=== PATIENT | female | born 1980 | race Caucasian/White ===

== ENCOUNTER → 2018-12-03 | Outpatient (CLI) | payer BC ==
[~2018-12-03] MED LIST: ALBU6.7H PO
[2018-12-03 11:34] LABS: CULTURE INDICATED? NO; MICROSCOPIC NOT IND
[2018-12-03 11:43] LABS: BASOPHILS # (AUTO) 0.04 x10^3/uL (0-0.1); BASOPHILS % (AUTO) 1 % (0-1); EOSINOPHILS # (AUTO) 0.02 x10^3/uL (0-0.4); EOSINOPHILS % (AUTO) 0 % (1-7); LYMPHOCYTES # (AUTO) 2.25 x10^3/uL (1-3.4); LYMPHOCYTES % (AUTO) 28 % (22-44); MD NO; MEAN CORPUSCULAR HEMOGLOBIN 27.4 pg (27.0-34.8); MEAN CORPUSCULAR HGB CONC 33.3 g/dL (32.4-35.8); MEAN CORPUSCULAR VOLUME 82.3 fL (80-100); MEAN PLATELET VOLUME 7.5 fL (7.4-10.4); MONOCYTES # (AUTO) 0.42 x10^3/uL (0.2-0.8); MONOCYTES % (AUTO) 5 % (2-9); NEUTROPHILS # (AUTO) 5.41 x10^3/uL (1.8-6.8); NEUTROPHILS % (AUTO) 66 % (42-75); PLATELET COUNT 283 x10^3/uL (130-400); RED BLOOD COUNT 4.71 x10^6/uL (3.82-5.3); RED CELL DISTRIBUTION WIDTH 14.8 % (9.6-15.2)
[2018-12-03 11:49] LABS: INTERNATIONAL NORMALIZED RATIO 0.95 (0.93-1.1)
[2018-12-03 11:52] LABS: ANION GAP 6 mmol/L (5-15); CALCIUM 8.9 mg/dL (8.5-10.1); CHLORIDE 114 mmol/L (98-107)
[2018-12-03 11:53] LABS: CREATININE 0.65 mg/dL (0.55-1.02)
== END | disposition home or self-care (01) ==
LOC: STAR 10:28
PROVIDERS: ATTEND Neurological Surgery
DX: Z01.818 Encounter for other preprocedural examination (principal); M54.16 Radiculopathy, lumbar region
CPT/HCPCS: 36415; 71046; 80048; 81003; 85025; 85610; 85730; 93005

== ENCOUNTER 2018-12-17 11:51 | Observation (INO) | payer BC ==
[~2018-12-17] VITALS: Ht 154.9 cm; Wt 74.6 kg
[~2018-12-17 11:51] MED LIST changes: +BACITRACIN 50,000 UNIT ONE; +BUPIVACAINE/PF 0.25% ONE; +EPINEPHRINE 1 MG/ML, 1ML ONE; +THROMBIN 5,000 UNIT VIAL TP ONE; +VANCOMYCIN 1,000 MG ONE
[2018-12-17] MEDS ORDERED: LACTATED RINGERS 1,000 ML IV SCH (12:14)
[2018-12-17 12:17] VITALS: BP 128/85
[2018-12-17 12:39] LABS: HCG UR SG 1.015 (1.003-1.030)
[2018-12-17] MEDS ORDERED: FENTANYL PF 250 MCG/5ML ONE (13:22)
[2018-12-17] MEDS ORDERED: MIDAZOLAM 1 MG/ML, 2ML ONE (13:22)
[2018-12-17] MEDS ORDERED: GLYCOPYRROLATE 0.2MG/1ML, 5ML ONE (13:26)
[2018-12-17] MEDS ORDERED: SUCCINYLCHOLINE 20 MG/ML, 10ML ONE (13:26)
[2018-12-17] MEDS ORDERED: CEFAZOLIN 1,000 MG ONE (13:26)
[2018-12-17] MEDS ORDERED: PROPOFOL 10 MG/ML, 20ML ONE (13:26)
[2018-12-17] MEDS ORDERED: ROCURONIUM 10MG/ML,5ML ONE (13:26)
[2018-12-17] MEDS ORDERED: NEOSTIGMINE 1 MG/ML, 10ML ONE (13:26)
[2018-12-17] MEDS ORDERED: ONDANSETRON 2MG/ML, 2ML ONE (13:26)
[2018-12-17] MEDS ORDERED: DEXAMETHASONE 4 MG/ML, 1ML ONE (13:26)
[2018-12-17] MEDS ORDERED: ONDANSETRON 2MG/ML, 2ML IV PRN (14:30)
[2018-12-17] MEDS ORDERED: ONDANSETRON ODT 8 MG PO PRN (14:30)
[2018-12-17] MEDS ORDERED: OXYcodone 5 MG/5 ML ORAL.SOL UDC PO PRN (14:30)
[2018-12-17] MEDS ORDERED: DIAZEPAM 5 MG/ML, 2ML IVPush PRN (14:30)
[2018-12-17] MEDS ORDERED: MEPERIDINE/PF 25MG/0.5ML IVPush PRN (14:30)
[2018-12-17] MEDS ORDERED: ACETAMINOPHEN 325 MG TABLET PO PRN (14:30)
[2018-12-17] MEDS ORDERED: LORazepam 2 MG/ML, 1ML IVPush PRN (14:30)
[2018-12-17] MEDS ORDERED: PROMETHAZINE 25 MG/ML, 1ML IV PRN (14:30)
[2018-12-17] MEDS ORDERED: methylPREDNISolone SOD SUCC 125 MG/2 ML ONE (16:19)
[2018-12-17] MEDS ORDERED: FENTANYL PF 100 MCG/2ML ONE ×2 (16:19→17:03)
[2018-12-17] MEDS ORDERED: MAGNESIUM HYDROXIDE 8%, 30ML UDC PO PRN (17:00)
[2018-12-17] MEDS ORDERED: PROMETHAZINE 25 MG/ML, 1ML IM PRN (17:00)
[2018-12-17] MEDS ORDERED: ONDANSETRON 2MG/ML, 2ML IVPush PRN (17:00)
[2018-12-17] MEDS ORDERED: PHARMACY MAY ADJ FOR RENAL FX MC PRN (17:00)
[2018-12-17] MEDS ORDERED: BISACODYL 10 MG SUPP PR PRN (17:00)
[2018-12-17] MEDS ORDERED: DIPHENHYDRAMINE 50 MG CAPSULE PO PRN (17:00)
[2018-12-17] MEDS ORDERED: ACETAMINOPHEN 650 MG/20.3 ML UDC ONE (17:03)
[2018-12-17] MEDS ORDERED: OXYcodone 5 MG/5 ML ORAL.SOL UDC ONE (17:03)
[2018-12-17] MEDS: FENTANYL PF 100 MCG/2ML IV PRN ×2 (17:08→17:14)
[2018-12-17] MEDS ORDERED: HYDROmorphone 2 MG/ML, 1ML ONE (17:29)
[2018-12-17] MEDS: HYDROmorphone 2 MG/ML, 1ML IVPush PRN ×4 (17:32→18:32)
[2018-12-17] MEDS ORDERED: MEPERIDINE/PF 25MG/ML,1ML ONE (17:44)
[2018-12-17] MEDS: METHOCARBAMOL 750 MG TABLET PO PRN (19:48)
[2018-12-17] MEDS: HYDROcodone/APAP 10/325 MG TABLET PO PRN ×2 (19:48→23:40)
[2018-12-17] MEDS: SODIUM CHLORIDE FLUSH 10ML SYR IVF SCH (21:00)
[2018-12-17] MEDS: CEFAZOLIN PMX 1GM/50ML 50 ML IVPB SCH (22:22)
[2018-12-17] MEDS: NS + 20MEQ KCL 1,000 ML IV SCH (22:23)
[2018-12-18 00:28] VITALS: BP 101/69
[2018-12-18] MEDS ORDERED: HYDROmorphone 2 MG/ML, 1ML ONE (01:15)
[2018-12-18] MEDS: HYDROmorphone 1 MG/ML, 1ML IVPush PRN ×2 (01:18→01:36)
[2018-12-18] MEDS: METHOCARBAMOL 750 MG TABLET PO PRN (04:08)
[2018-12-18] MEDS: HYDROcodone/APAP 10/325 MG TABLET PO PRN ×3 (04:08→13:01)
[2018-12-18 04:45] VITALS: BP 107/68
[2018-12-18] MEDS: CEFAZOLIN PMX 1GM/50ML 50 ML IVPB SCH (06:12)
[2018-12-18] MEDS: NS + 20MEQ KCL 1,000 ML IV SCH (06:20)
[2018-12-18 07:39] VITALS: BP 106/67
[2018-12-18] MEDS ORDERED: METH750T2 PO (08:51)
[2018-12-18] MEDS ORDERED: HYDR-3307 PO (08:51)
[2018-12-18] MEDS ORDERED: SENNA/DOCUSATE TABLET PO SCH (09:00)
[2018-12-18] MEDS ORDERED: METHOCARBAMOL 750 MG TABLET PO PRN (09:00)
[2018-12-18] MEDS: SODIUM CHLORIDE FLUSH 10ML SYR IVF SCH (09:10)
[2018-12-18 12:59] VITALS: BP 114/73
== END 2018-12-18 13:52 | disposition home or self-care (01) ==
LOC: OUT 11:51 → ORIP 16:43 → 4NOR 19:02 → DCLOUNGE 12-18 13:17
PROVIDERS: ADMIT Neurological Surgery; ATTEND Neurological Surgery
DX: M51.17 Intervertebral disc disorders with radiculopathy, lumbosacral region (principal); M67.40 Ganglion, unspecified site
CPT/HCPCS: 63047; 63048; 72100; 81025; 96365; 96366; 96372; 96375; 97161; 97165; G0378; J0171; J0330; J0690; J1100; J1170; J2175; J2250; J2405; J2550; J2704; J2710; J2930; J3010; J3480; J3490; J3370

== ENCOUNTER 2019-05-09 18:51 | Emergency (ER) | payer BC ==
[~2019-05-09] VITALS: Ht 152.4 cm; Wt 76.8 kg
[~2019-05-09 18:51] MED LIST changes: -ALBU6.7H PO; +ALBU6.7H8 PO; -BACITRACIN 50,000 UNIT ONE; -BUPIVACAINE/PF 0.25% ONE; -EPINEPHRINE 1 MG/ML, 1ML ONE; +HYDR-36 PO; +METH750T2 PO; -THROMBIN 5,000 UNIT VIAL TP ONE; -VANCOMYCIN 1,000 MG ONE
[2019-05-09 18:55] VITALS: BP 121/86
--- NOTE | 2019-05-09 19:08 | NUR ---
Patient to room with family, reports weakness and tingling worse on left side and worsening contraction of the left calf. Also worsenging numbness of "genitals." Patient reports symptoms are similar to previous symptoms that were associated with previous spinal problems that had been treated with a spinal surgery. Patient placed on monitor; vss. Provider to bedside. Awaiting orders
[2019-05-09 20:13] LABS: HCG UR SG 1.024 (1.003-1.030); MICROSCOPIC NOT IND
[2019-05-09 20:18] LABS: CULTURE INDICATED? NO
[2019-06-06] MEDS ORDERED: GABA600T7 PO (12:59)
[2019-06-06] MEDS ORDERED: IRON18TA PO (12:59)
[2019-06-06] MEDS ORDERED: TOLT4CAP PO (12:59)
[2019-06-06] MEDS ORDERED: CHOL100012 PO (12:59)
== END 2019-05-09 21:38 | disposition home or self-care (01) ==
LOC: ED 19:46
DX: R30.0 Dysuria (principal); R20.2 Paresthesia of skin; G89.29 Other chronic pain; M54.5 Low back pain
CPT/HCPCS: 81003; 81025; 99283

== ENCOUNTER 2019-06-12 17:00 | Inpatient (IN) | payer BC ==
[~2019-06-12] VITALS: Ht 152.4 cm; Wt 77.7 kg
[~2019-06-12 17:00] MED LIST changes: +CHOL100012 PO; +GABA600T7 PO; +IRON18TA PO; +TOLT4CAP PO
[2019-06-14] MEDS ORDERED: BUPIVACAINE/PF 0.25% ONE ×2 (07:07→11:55)
[2019-06-14] MEDS ORDERED: EPINEPHRINE 1 MG/ML, 1ML ONE (07:07)
[2019-06-14] MEDS ORDERED: THROMBIN (RECOMBINANT) 5,000 UNIT VIAL TP ONE (07:07)
[2019-06-14] MEDS ORDERED: BACITRACIN 50,000 UNIT ONE (07:07)
[2019-06-14] MEDS ORDERED: VANCOMYCIN 1,000 MG ONE (07:08)
[2019-06-14 08:30] VITALS: BP 133/89
[2019-06-14] MEDS ORDERED: ONDANSETRON 2MG/ML, 2ML IV PRN (09:00)
[2019-06-14] MEDS ORDERED: OXYcodone 5 MG/5 ML ORAL.SOL UDC PO PRN (09:00)
[2019-06-14] MEDS ORDERED: hydrALAzine 20 MG/ML, 1ML IV PRN (09:00)
[2019-06-14] MEDS ORDERED: PROMETHAZINE 25 MG/ML, 1ML IV PRN (09:00)
[2019-06-14] MEDS ORDERED: FENTANYL PF 100 MCG/2ML IV PRN (09:00)
[2019-06-14] MEDS ORDERED: MEPERIDINE/PF 25MG/ML,1ML IVPush PRN (09:00)
[2019-06-14] MEDS ORDERED: LABETALOL 5MG/ML, 20ML IV PRN (09:00)
[2019-06-14] MEDS ORDERED: GABA300C10 PO (09:05)
[2019-06-14] MEDS ORDERED: FENTANYL PF 250 MCG/5ML ONE (09:32)
[2019-06-14] MEDS ORDERED: MIDAZOLAM 1 MG/ML, 2ML ONE (09:32)
[2019-06-14] MEDS ORDERED: PROPOFOL 100 ML ONE (09:32)
[2019-06-14] MEDS ORDERED: HEPARIN 1,000 UNITS/ML, 30ML ONE (09:53)
[2019-06-14] MEDS ORDERED: ROCURONIUM 10 MG/ML,10ML ONE (10:33)
[2019-06-14] MEDS ORDERED: DEXAMETHASONE 4 MG/ML, 1ML ONE (10:33)
[2019-06-14] MEDS ORDERED: CEFAZOLIN 1,000 MG ONE (10:33)
[2019-06-14] MEDS ORDERED: ONDANSETRON 2MG/ML, 2ML ONE (10:33)
[2019-06-14] MEDS ORDERED: HYDROmorphone 1 MG/ML, 1ML VIAL ONE (13:27)
[2019-06-14] MEDS ORDERED: OXYcodone 5 MG/5 ML ORAL.SOL UDC ONE (13:27)
[2019-06-14] MEDS ORDERED: HYDROmorphone 1 MG/ML, 1ML INJ IVPush PRN (13:30)
[2019-06-14] MEDS ORDERED: PROMETHAZINE 25 MG/ML, 1ML IM PRN (13:30)
[2019-06-14] MEDS ORDERED: ONDANSETRON 2MG/ML, 2ML IVPush PRN (13:30)
[2019-06-14] MEDS ORDERED: MAGNESIUM HYDROXIDE 8%, 30ML UDC PO PRN (13:30)
[2019-06-14] MEDS: HYDROmorphone 2 MG/ML, 1ML IVPush PRN ×5 (13:30→17:42)
[2019-06-14] MEDS ORDERED: PHARMACY MAY ADJ FOR RENAL FX MC PRN (13:30)
[2019-06-14] MEDS ORDERED: DIPHENHYDRAMINE 50 MG/ML, 1ML IVPush PRN (13:30)
[2019-06-14] MEDS ORDERED: DIAZEPAM 5 MG TABLET PO PRN (13:30)
[2019-06-14] MEDS ORDERED: BISACODYL 10 MG SUPP PR PRN (13:30)
[2019-06-14] MEDS ORDERED: MEPERIDINE/PF 100 MG/ML IM PRN (13:30)
[2019-06-14] MEDS ORDERED: HYDROmorphone PCA 30 MG/30 ML IV PRN (13:30)
[2019-06-14] MEDS ORDERED: DIAZEPAM 5 MG/ML, 2ML ONE (13:35)
[2019-06-14] MEDS ORDERED: MEPERIDINE/PF 25MG/ML,1ML ONE (13:47)
[2019-06-14] MEDS ORDERED: DIAZEPAM 5 MG/ML, 2ML IV ONE (14:00)
[2019-06-14] MEDS: GABAPENTIN 300 MG CAPSULE PO SCH ×2 (15:28→20:33)
[2019-06-14] MEDS: NS + 20MEQ KCL 1,000 ML IV SCH (15:44)
[2019-06-14] MEDS: TIZANIDINE 4MG TABLET PO PRN (15:44)
[2019-06-14] MEDS: METHOCARBAMOL 750 MG TABLET PO PRN (17:05)
[2019-06-14 18:46] VITALS: BP 94/62
[2019-06-14] MEDS: CEFAZOLIN PMX 1GM/50ML 50 ML IVPB SCH (19:32)
[2019-06-14] MEDS: SODIUM CHLORIDE FLUSH 10ML SYR IVF SCH (20:34)
[2019-06-15] MEDS: TIZANIDINE 4MG TABLET PO PRN ×3 (00:06→19:30)
[2019-06-15 00:12] VITALS: BP 111/79
[2019-06-15] MEDS: NS + 20MEQ KCL 1,000 ML IV SCH ×3 (02:00→22:00)
[2019-06-15] MEDS: METHOCARBAMOL 750 MG TABLET PO PRN ×2 (02:33→16:18)
[2019-06-15] MEDS: CEFAZOLIN PMX 1GM/50ML 50 ML IVPB SCH (02:34)
[2019-06-15] MEDS: HYDROmorphone 2 MG/ML, 1ML IVPush PRN (03:51)
[2019-06-15 04:18] VITALS: BP 111/79
[2019-06-15 05:28] LABS: BASOPHILS # (AUTO) 0.01 x10^3/uL (0-0.1); BASOPHILS % (AUTO) 0 % (0-1); EOSINOPHILS % (AUTO) 0 % (1-7); LYMPHOCYTES # (AUTO) 0.86 x10^3/uL (1-3.4); LYMPHOCYTES % (AUTO) 6 % (22-44); MD NO; MEAN CORPUSCULAR HEMOGLOBIN 30.3 pg (27.0-34.8); MEAN CORPUSCULAR HGB CONC 33.9 g/dL (32.4-35.8); MEAN CORPUSCULAR VOLUME 89.3 fL (80-100); MEAN PLATELET VOLUME 7.8 fL (7.4-10.4); MONOCYTES # (AUTO) 0.66 x10^3/uL (0.2-0.8); MONOCYTES % (AUTO) 5 % (2-9); NEUTROPHILS # (AUTO) 12.98 x10^3/uL (1.8-6.8); NEUTROPHILS % (AUTO) 90 % (42-75); PLATELET COUNT 240 x10^3/uL (130-400); RED BLOOD COUNT 3.76 x10^6/uL (3.82-5.3); RED CELL DISTRIBUTION WIDTH 17.1 % (9.6-15.2)
[2019-06-15 05:45] LABS: ANION GAP 6 mmol/L (5-15); CALCIUM 8.4 mg/dL (8.5-10.1); CHLORIDE 109 mmol/L (98-107)
[2019-06-15 05:47] LABS: CREATININE 0.78 mg/dL (0.55-1.02)
[2019-06-15 08:03] VITALS: BP 106/69
[2019-06-15] MEDS: GABAPENTIN 300 MG CAPSULE PO SCH ×3 (08:48→21:13)
[2019-06-15] MEDS: TOLTERODINE LA 4MG CAP.ER.24H PO SCH (08:48)
[2019-06-15] MEDS: SENNA/DOCUSATE TABLET PO SCH (08:48)
[2019-06-15] MEDS: SODIUM CHLORIDE FLUSH 10ML SYR IVF SCH ×2 (08:49→21:00)
[2019-06-15] MEDS: OXYcodone/APAP 5/325MG TABLET PO PRN ×3 (08:49→20:29)
[2019-06-15] MEDS ORDERED: HYDROmorphone 1 MG/ML, 1ML INJ IVPush PRN (09:30)
[2019-06-15 13:16] VITALS: BP 99/64
[2019-06-15 20:21] VITALS: BP 95/69
[2019-06-16] MEDS: METHOCARBAMOL 750 MG TABLET PO PRN ×3 (00:15→16:03)
[2019-06-16] MEDS: OXYcodone/APAP 5/325MG TABLET PO PRN ×4 (00:16→17:35)
[2019-06-16 00:28] VITALS: BP 91/60
[2019-06-16] MEDS: TIZANIDINE 4MG TABLET PO PRN ×2 (04:30→11:51)
[2019-06-16 05:42] LABS: CHLORIDE 109 mmol/L (98-107)
[2019-06-16 05:49] LABS: BASOPHILS # (AUTO) 0.03 x10^3/uL (0-0.1); BASOPHILS % (AUTO) 0 % (0-1); EOSINOPHILS # (AUTO) 0.03 x10^3/uL (0-0.4); EOSINOPHILS % (AUTO) 0 % (1-7); LYMPHOCYTES # (AUTO) 2.44 x10^3/uL (1-3.4); LYMPHOCYTES % (AUTO) 22 % (22-44); MD NO; MEAN CORPUSCULAR HEMOGLOBIN 30.7 pg (27.0-34.8); MEAN CORPUSCULAR HGB CONC 34.4 g/dL (32.4-35.8); MEAN CORPUSCULAR VOLUME 89.3 fL (80-100); MEAN PLATELET VOLUME 7.5 fL (7.4-10.4); MONOCYTES % (AUTO) 7 % (2-9); NEUTROPHILS # (AUTO) 7.69 x10^3/uL (1.8-6.8); NEUTROPHILS % (AUTO) 70 % (42-75); PLATELET COUNT 204 x10^3/uL (130-400); RED CELL DISTRIBUTION WIDTH 17.2 % (9.6-15.2)
[2019-06-16 06:22] LABS: ANION GAP 8 mmol/L (5-15); CALCIUM 7.4 mg/dL (8.5-10.1); CREATININE 0.63 mg/dL (0.55-1.02)
[2019-06-16 07:17] VITALS: BP 92/58
[2019-06-16] MEDS: NS + 20MEQ KCL 1,000 ML IV SCH ×2 (07:30→17:18)
[2019-06-16] MEDS: SENNA/DOCUSATE TABLET PO SCH (09:17)
[2019-06-16] MEDS: GABAPENTIN 300 MG CAPSULE PO SCH ×2 (09:18→16:04)
[2019-06-16] MEDS: SODIUM CHLORIDE FLUSH 10ML SYR IVF SCH (09:19)
[2019-06-16] MEDS: TOLTERODINE LA 4MG CAP.ER.24H PO SCH (09:19)
[2019-06-16 15:02] VITALS: BP 106/71
[2019-06-16] MEDS ORDERED: TRAM50TA2 PO (16:37)
[2019-06-16] MEDS ORDERED: METH500T7 PO (16:37)
== END 2019-06-16 17:30 | disposition home or self-care (01) | DRG 454 ==
LOC: 4NE 06-14 07:19
PROVIDERS: ADMIT Neurological Surgery; ATTEND Neurological Surgery
PROC: 0SG00AJ Fusion of Lumbar Vertebral Joint with Interbody Fusion Device, Posterior Approach, Anterior Column, Open Approach (ICD-10-PCS; 2019-06-14)
PROC: 01NB0ZZ Release Lumbar Nerve, Open Approach (ICD-10-PCS; 2019-06-14)
PROC: 01NR0ZZ Release Sacral Nerve, Open Approach (ICD-10-PCS; 2019-06-14)
PROC: 3E0U0GB Introduction of Recombinant Bone Morphogenetic Protein into Joints, Open Approach (ICD-10-PCS; 2019-06-14)
PROC: 0SG0071 Fusion of Lumbar Vertebral Joint with Autologous Tissue Substitute, Posterior Approach, Posterior Column, Open Approach (ICD-10-PCS; 2019-06-14)
PROC: 0SG3071 Fusion of Lumbosacral Joint with Autologous Tissue Substitute, Posterior Approach, Posterior Column, Open Approach (ICD-10-PCS; 2019-06-14)
PROC: 4A11X4G Monitoring of Peripheral Nervous Electrical Activity, Intraoperative, External Approach (ICD-10-PCS; 2019-06-14)
PROC: 0SG30AJ Fusion of Lumbosacral Joint with Interbody Fusion Device, Posterior Approach, Anterior Column, Open Approach (ICD-10-PCS; principal; 2019-06-14 10:00)
DX: M51.16 Intervertebral disc disorders with radiculopathy, lumbar region (principal); G83.4 Cauda equina syndrome; G43.909 Migraine, unspecified, not intractable, without status migrainosus; M48.07 Spinal stenosis, lumbosacral region; M51.37 Other intervertebral disc degeneration, lumbosacral region; G47.00 Insomnia, unspecified; E03.9 Hypothyroidism, unspecified; Z72.89 Other problems related to lifestyle; Z82.61 Family history of arthritis; Z83.3 Family history of diabetes mellitus; Z82.49 Family history of ischemic heart disease and other diseases of the circulatory system; Z80.6 Family history of leukemia; Z79.899 Other long term (current) drug therapy
CPT/HCPCS: 36415; 72100; 80048; 81025; 85025; 95938; 95941; C1713; C1776; G0378; J0171; J0690; J1100; J1170; J1644; J2250; J2405; J2704; J3010; J3360; J3370; J3480; J3490; C1762; J2175